=== PATIENT | female | born 1995 | race Two or more races ===

== ENCOUNTER 2016-10-11 19:32 | Emergency (ER) | payer OTHER ==
[~2016-10-11] VITALS: Ht 157.5 cm; Wt 90.6 kg
[2016-10-11] MEDS ORDERED: ASPIRIN 81 MG TABLET CHEW PO ONE (20:00)
[2016-10-11 20:15] LABS: BLOOD UREA NITROGEN 10 mg/dL (7-18)
[2016-10-11 20:19] LABS: IS PT STATUS REG ER OR PRE ER? YES
[2016-10-11] MEDS ORDERED: DEXAMETHASONE 4 MG/ML, 1ML IM SCH (20:30)
[2016-10-11] MEDS ORDERED: DEXAMETHASONE 4 MG/ML, 5ML ONE (20:42)
[2016-10-11 20:53] VITALS: BP 127/80
== END 2016-10-11 21:50 | disposition home or self-care (01) ==
LOC: ED 21:32
DX: R07.89 Other chest pain (principal); R68.84 Jaw pain; J03.80 Acute tonsillitis due to other specified organisms; B97.89 Other viral agents as the cause of diseases classified elsewhere
CPT/HCPCS: 36415; 70360; 71010; 80048; 82040; 84484; 85025; 93005; 96372; 99285; J1100